=== PATIENT | female | born 1995 | race Caucasian/White ===

== ENCOUNTER → 2017-06-26 | Outpatient (CLI) | payer OTHER ==
[2017-06-26 13:17] LABS: BASO % 0.5 % (0.0-1.0); EOS # 0.1 10^3/uL (0.0-0.50); EOS % 1.5 % (0.0-3.0); IMMATURE GRANULOCYTE % 0.2 % (0-0); LYMPH # 1.7 10^3/uL (1.5-6.5); LYMPH % 27.1 % (24.0-44.0); MEAN CORPUSCULAR HEMOGLOBIN 29.2 pg (27.0-33.0); MEAN CORPUSCULAR HGB CONC 33.3 g/dl (32.0-36.5); MEAN CORPUSCULAR VOLUME 87.9 fl (80.0-96.0); MONO # 0.5 10^3/uL (0.0-0.8); MONO % 8.1 % (0.0-5.0); NEUTROPHILS # 3.9 10^3/uL (1.8-7.7); NEUTROPHILS % 62.6 % (36.0-66.0); PLATELET COUNT, AUTOMATED 252 10^3/uL (150-450); RED CELL DISTRIBUTION WIDTH 13.1 % (11.5-14.5); WHITE BLOOD COUNT 6.2 10^3/uL (4.0-10.0)
[2017-06-26 14:08] LABS: HBsAg Prenatal NEGATIVE (NEGATIVE)
== END ==
LOC: M SMT 10:38
PROVIDERS: ATTEND Advanced Practice Midwife
DX: O34.211 Maternal care for low transverse scar from previous cesarean delivery (principal); Z3A.10 10 weeks gestation of pregnancy

== ENCOUNTER → 2017-08-07 | Outpatient (CLI) | payer OTHER | LOC: M SMT 10:32 | DX: Z31.438 Encounter for other genetic testing of female for procreative management (principal) | CPT/HCPCS: 36415 ==

== ENCOUNTER → 2017-09-01 | Outpatient (CLI) | payer OTHER | LOC: M RAD 14:05 | DX: Z34.82 Encounter for supervision of other normal pregnancy, second trimester (principal) ==

== ENCOUNTER → 2017-09-26 | Outpatient (CLI) | payer OTHER | LOC: M RAD 17:14 | DX: Z34.82 Encounter for supervision of other normal pregnancy, second trimester (principal) ==

== ENCOUNTER → 2017-10-25 | Outpatient (CLI) | payer OTHER ==
[2017-10-25 08:46] LABS: GLUCOSE, FASTING 86 MG/DL (LESS THAN 95)
[2017-10-25 09:51] LABS: 1 HR GLUCOSE 137 MG/DL (LESS THAN 180)
[2017-10-25 10:46] LABS: 2 HR GLUCOSE 99 MG/DL (LESS THAN 155)
[2017-10-25 12:10] LABS: 3 HR GLUCOSE 118 MG/DL (LESS THAN 140)
== END ==
LOC: M LAB 07:57
DX: R73.02 Impaired glucose tolerance (oral) (principal)

== ENCOUNTER 2017-11-28 18:18 | Outpatient (CLI) | payer OTHER | END 2017-11-28 19:35 | disposition home or self-care (01) | LOC: M LDO 18:18 | DX: O36.8130 Decreased fetal movements, third trimester, not applicable or unspecified (principal); O47.03 False labor before 37 completed weeks of gestation, third trimester; Z3A.32 32 weeks gestation of pregnancy | CPT/HCPCS: 59025 ==

== ENCOUNTER → 2017-12-22 | Outpatient (REF) | payer OTHER | LOC: M LAB REF 17:01 | DX: Z34.83 Encounter for supervision of other normal pregnancy, third trimester (principal) ==

== ENCOUNTER 2017-12-28 19:00 | Outpatient (CLI) | payer OTHER | END 2017-12-28 21:55 | disposition home or self-care (01) | LOC: M LDO 19:00 | DX: O47.1 False labor at or after 37 completed weeks of gestation (principal); Z3A.37 37 weeks gestation of pregnancy | CPT/HCPCS: 59025 ==

== ENCOUNTER 2018-01-09 08:33 | Inpatient (IN) | payer OTHER ==
[2018-01-09] MEDS ORDERED: LR 1,000 ML IV (10:52)
[2018-01-09] MEDS ORDERED: OXYTOCIN INJ 10 UNITS/ML VIAL (J2590) As Ordered ×2 (10:58)
[2018-01-09] MEDS ORDERED: PHENYLEPHRINE INJ 10MG/ML VIAL (J2370) As Ordered (11:01)
[2018-01-09] MEDS ORDERED: MORPHINE PRES-FREE INJ 10 MG/10 ML VIAL (J2274) As Ordered (11:03)
[2018-01-09 11:06] LABS: HEMATOCRIT 36.1 % (36.0-47.0); HEMOGLOBIN 11.5 g/dl (12.0-15.5); MEAN CORPUSCULAR HEMOGLOBIN 25.9 pg (27.0-33.0); MEAN CORPUSCULAR HGB CONC 31.9 g/dl (32.0-36.5); MEAN CORPUSCULAR VOLUME 81.3 fl (80.0-96.0); PLATELET COUNT, AUTOMATED 203 10^3/uL (150-450); RED BLOOD COUNT 4.44 10^6/uL (4.00-5.40); RED CELL DISTRIBUTION WIDTH 14.8 % (11.5-14.5)
[2018-01-09] MEDS: LACTATED RINGER'S 1000 ML IV (11:50)
[2018-01-09] MEDS: BICITRA 30ML SOLN UDC PO (11:51)
[2018-01-09] MEDS ORDERED: AZITHROMYCIN INJ 500MG VIAL (J0456) As Ordered (11:57)
[2018-01-09] MEDS: AZITHROMYCIN INJ 500 MG, VIAL MATE ADAPTER 1 EACH in D5W 250 ML IV (12:00)
[2018-01-09] MEDS ORDERED: ONDANSETRON 4MG/2ML VIAL (J2405) IV ×3 (12:08→13:45)
[2018-01-09] MEDS ORDERED: NALBUPHINE HCL 10 MG/ML AMP (J2300) IV ×2 (12:08→13:45)
[2018-01-09] MEDS ORDERED: NALOXONE INJ 0.4 MG/1 ML VIAL (J2310) IV ×2 (12:08)
[2018-01-09] MEDS ORDERED: dexameTHASONE 4 MG/ML 1ML VIAL (J1100) As Ordered (12:30)
[2018-01-09] MEDS ORDERED: PERCOCET 5MG/325MG TAB PO (13:30)
[2018-01-09] MEDS ORDERED: PROMETHAZINE 25 MG TAB PO (13:30)
[2018-01-09] MEDS ORDERED: fentaNYL 100 MCG/2 ML INJECTION (J3010) IV (13:45)
[2018-01-09] MEDS: RHOGAM 300 MCG (1500 IU) INJ (J2790) IM (14:03)
[2018-01-09] MEDS: MEASLES,MUMPS,RUBELLA VACCINE INJ (MMR-II) (90707) SC (14:04)
[2018-01-09] MEDS ORDERED: KETOROLAC 30 MG/ML VIAL (J1885) As Ordered (14:32)
[2018-01-09] MEDS: KETOROLAC 30 MG/ML VIAL (J1885) IV ×2 (14:35→20:55)
[2018-01-09] MEDS: LR 1,000 ML IV ×2 (15:38→21:28)
[2018-01-09] MEDS: DOCUSATE SODIUM 100 MG CAP PO ×2 (16:34→20:55)
[2018-01-09] MEDS: PRENATAL VITAMINS CHEWABLE TABLET PO (16:35)
[2018-01-09] MEDS: OXYTOCIN DRIP 30 UNITS in APPROPRIATE DILUENT 1 EA IV (16:35)
[2018-01-09] MEDS: METOCLOPRAMIDE INJ 10MG/2ML VIAL (J2765) IV (20:54)
[2018-01-10] MEDS: KETOROLAC 30 MG/ML VIAL (J1885) IV ×2 (02:22→08:14)
[2018-01-10 07:32] LABS: MEAN CORPUSCULAR HEMOGLOBIN 25.8 pg (27.0-33.0); MEAN CORPUSCULAR HGB CONC 31.7 g/dl (32.0-36.5); MEAN CORPUSCULAR VOLUME 81.5 fl (80.0-96.0); PLATELET COUNT, AUTOMATED 205 10^3/uL (150-450); RED BLOOD COUNT 3.68 10^6/uL (4.00-5.40); RED CELL DISTRIBUTION WIDTH 14.5 % (11.5-14.5); WHITE BLOOD COUNT 13.6 10^3/uL (4.0-10.0)
[2018-01-10 07:33] LABS: HEMOGLOBIN 9.5 g/dl (12.0-15.5)
[2018-01-10] MEDS: DOCUSATE SODIUM 100 MG CAP PO ×2 (08:14→20:14)
[2018-01-10] MEDS: PRENATAL VITAMINS CHEWABLE TABLET PO (08:14)
[2018-01-10] MEDS: IBUPROFEN 800 MG TAB PO ×2 (16:15→23:43)
[2018-01-10] MEDS: PERCOCET 5MG/325MG TAB PO (16:16)
[2018-01-11] MEDS: DOCUSATE SODIUM 100 MG CAP PO (08:56)
[2018-01-11] MEDS: PRENATAL VITAMINS CHEWABLE TABLET PO (08:56)
[2018-01-11] MEDS: IBUPROFEN 800 MG TAB PO (08:57)
[2018-01-11] MEDS: PERCOCET 5MG/325MG TAB PO (08:59)
== END 2018-01-11 12:35 | disposition home or self-care (01) | DRG 766 ==
LOC: M LDO 08:33 → M LDI 10:31 → M OBS 15:01
PROVIDERS: Obstetrics & Gynecology
PROC: 10D00Z1 Extraction of Products of Conception, Low, Open Approach (ICD-10-PCS; principal; 2018-01-09 11:59)
DX: O34.211 Maternal care for low transverse scar from previous cesarean delivery (principal); Z37.0 Single live birth; Z3A.38 38 weeks gestation of pregnancy

== ENCOUNTER 2018-10-18 21:15 | Emergency (ER) | payer OTHER ==
[~2018-10-18] VITALS: Ht 154.9 cm; Wt 65.9 kg
[~2018-10-18 21:15] MED LIST: COLA100C5 PO; IBUP80TA PO; PERC5TAB12 PO; PREN27TA3 PO; PRENTAB9 PO
[2018-10-18] MEDS ORDERED: NS 1,000 ML IV ONE ×2 (21:30→22:30)
[2018-10-18] MEDS ORDERED: ONDANSETRON 4MG/2ML VIAL (J2405) IV ONE (21:45)
[2018-10-18 22:15] LABS: BASO % 0.1 % (0.0-1.0); EOS % 0.3 % (0.0-3.0); HEMATOCRIT 36.3 % (36.0-47.0); HEMOGLOBIN 12.2 g/dl (12.0-15.5); LYMPH % 7.1 % (24.0-44.0); MEAN CORPUSCULAR HGB CONC 33.6 g/dl (32.0-36.5); MEAN CORPUSCULAR VOLUME 83.4 fl (80.0-96.0); MONO % 7.3 % (0.0-5.0); NEUTROPHILS # 11.7 10^3/uL (1.8-7.7); NEUTROPHILS % 84.8 % (36.0-66.0); PLATELET COUNT, AUTOMATED 232 10^3/uL (150-450); RED BLOOD COUNT 4.35 10^6/uL (4.00-5.40); WHITE BLOOD COUNT 13.8 10^3/uL (4.0-10.0)
[2018-10-18 22:47] LABS: INFLUENZA A AMPLIFICATION POSITIVE (NEGATIVE); INFLUENZA B AMPLIFICATION NEGATIVE (NEGATIVE)
[2018-10-18 22:53] LABS: ALBUMIN 3.1 GM/DL (3.2-5.2); ALT/SGPT 12 U/L (12-78); BILIRUBIN,DIRECT 0.1 MG/DL (0.0-0.2); BILIRUBIN,TOTAL 0.3 MG/DL (0.2-1.0); BLOOD UREA NITROGEN 9 MG/DL (7-18); CALCIUM LEVEL 8.2 MG/DL (8.5-10.1); CARBON DIOXIDE LEVEL 20 MEQ/L (21-32); CHLORIDE LEVEL 103 MEQ/L (98-107); CREATININE FOR GFR 0.41 MG/DL (0.55-1.30); GLOMERULAR FILTRATION RATE > 60.0 (>60); GLUCOSE, FASTING 121 MG/DL (70-100); POTASSIUM SERUM 2.9 MEQ/L (3.5-5.1); SODIUM LEVEL 135 MEQ/L (136-145); TOTAL PROTEIN 6.7 GM/DL (6.4-8.2)
[2018-10-18] MEDS ORDERED: POTASSIUM CHLORIDE 10 MEQ SR TABLET PO ONE (23:00)
[2018-10-18] MEDS ORDERED: KCL 10MEQ/100ML SWI (KRUN) 10 MEQ in APPROPRIATE DILUENT 1 EA IV ONE (23:00)
[2018-10-18] MEDS ORDERED: OSELTAMIVIR PHOSPHATE 75 MG CAP (TAMIFLU) PO ONE (23:30)
[2018-10-18] MEDS ORDERED: OSEL75CA PO (23:47)
[2018-10-18] MEDS ORDERED: ONDA4TAB6 PO (23:47)
[2018-10-19 01:17] VITALS: BP 109/71
--- NOTE | 2018-10-19 21:48 | ECGEPIP ---
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
== END 2018-10-19 01:20 | disposition home or self-care (01) ==
LOC: M ED 21:15
DX: O99.89 Other specified diseases and conditions complicating pregnancy, childbirth and the puerperium (principal); J09.X2 Influenza due to identified novel influenza A virus with other respiratory manifestations; O99.612 Diseases of the digestive system complicating pregnancy, second trimester; K52.9 Noninfective gastroenteritis and colitis, unspecified; E86.0 Dehydration; R00.0 Tachycardia, unspecified; O99.112 Other diseases of the blood and blood-forming organs and certain disorders involving the immune mechanism complicating pregnancy, second trimester; E87.6 Hypokalemia; Z87.891 Personal history of nicotine dependence; Z20.828 Contact with and (suspected) exposure to other viral communicable diseases; Z3A.14 14 weeks gestation of pregnancy

== ENCOUNTER 2019-03-29 06:36 | Outpatient (CLI) | payer OTHER ==
[~2019-03-29] VITALS: Ht 154.9 cm; Wt 71.5 kg
[~2019-03-29 06:36] MED LIST changes: +ONDA4TAB6 PO; +OSEL75CA PO
[2019-03-29 06:59] VITALS: BP 108/65
== END 2019-03-29 09:14 | disposition home or self-care (01) ==
LOC: M LDO 06:36
PROVIDERS: ATTEND Obstetrics & Gynecology
DX: O36.8130 Decreased fetal movements, third trimester, not applicable or unspecified (principal); Z3A.37 37 weeks gestation of pregnancy
CPT/HCPCS: 59025; 76815; G0378; G0463

== ENCOUNTER 2019-04-04 11:15 | Inpatient (IN) | payer OTHER ==
[~2019-04-04] VITALS: Ht 154.9 cm; Wt 69.0 kg
[2019-04-04] MEDS ORDERED: LR 1,000 ML IV SCH ×3 (12:07→16:00)
[2019-04-04] MEDS ORDERED: LACTATED RINGER'S 1000 ML IV STA (12:07)
[2019-04-04] MEDS ORDERED: BICITRA 30ML SOLN UDC PO ONE (12:30)
[2019-04-04] MEDS ORDERED: LACTATED RINGER'S 1000 ML IV ONE (12:30)
[2019-04-04 12:33] LABS: HEMATOCRIT 33.8 % (36.0-47.0); HEMOGLOBIN 10.5 g/dl (12.0-15.5); MEAN CORPUSCULAR HEMOGLOBIN 24.8 pg (27.0-33.0); MEAN CORPUSCULAR HGB CONC 31.1 g/dl (32.0-36.5); MEAN CORPUSCULAR VOLUME 79.9 fl (80.0-96.0); PLATELET COUNT, AUTOMATED 260 10^3/uL (150-450); RED BLOOD COUNT 4.23 10^6/uL (4.00-5.40); WHITE BLOOD COUNT 12.1 10^3/uL (4.0-10.0)
[2019-04-04] MEDS ORDERED: BUPIVACAINE HCL 0.25% 10 ML VIAL SC ONE (12:45)
[2019-04-04] MEDS ORDERED: ACETAMINOPHEN 650 MG SUPP PR ONE (12:45)
[2019-04-04] MEDS ORDERED: ONDANSETRON 4MG/2ML VIAL (J2405) IV PRN ×2 (13:19→16:00)
[2019-04-04] MEDS ORDERED: NALOXONE INJ 0.4 MG/1 ML VIAL (J2310) IV PRN ×2 (13:19)
[2019-04-04] MEDS ORDERED: METOCLOPRAMIDE INJ 10MG/2ML VIAL (J2765) IV PRN (13:19)
[2019-04-04] MEDS ORDERED: diphenhydrAMINE INJ 50MG/ML VIAL (J1200) IV PRN (13:19)
[2019-04-04] MEDS ORDERED: NALBUPHINE HCL 10 MG/ML AMP (J2300) IV PRN (13:19)
[2019-04-04] MEDS ORDERED: PHENYLephrine HCL 500 MCG/5 ML (100MCG/ML) SYRINGE (J2370) As Ordered ONE (13:54)
[2019-04-04] MEDS ORDERED: MORPHINE PRES-FREE INJ 10 MG/10 ML VIAL (J2274) As Ordered ONE (13:54)
[2019-04-04] MEDS ORDERED: OXYTOCIN INJ 10 UNITS/ML VIAL (J2590) As Ordered ONE (13:54)
[2019-04-04] MEDS ORDERED: ONDANSETRON 4MG/2ML VIAL (J2405) As Ordered ONE (13:58)
--- NOTE | 2019-04-04 14:29 | HPE ---
DATE OF ADMISSION: 04/04/2019 HISTORY: 24-year-old, 6, para 2, abortio 3, last menstrual period (LMP) 07/03/2018, expected date of confinement (EDC) 04/18/2019, at 38 weeks of gestation who came in with active labor while she was in centering. She did not have a pelvic exam at that time. She came in with a non-reassuring heart strip, but she had some moderate contractions. She has had two previous sections. She has a large adnexal mass on her right ovary. Her risk factors is she had spinal fusion, she has had two previous sections, she has a right ovarian mass which is assumed to be benign. PAST HISTORY: In 2016, at 15 weeks, spontaneous . In 2017, at 37 weeks, section because of her spinal fusion. In 2017, at 7 weeks, spontaneous . In 2018, at 38 weeks, repeat section. In 2018, a documented 4 weeks gestation with spontaneous . LABS: A positive. HIV negative. Hepatitis negative. RPR negative. Rubella immune. Varicella immune. Urine negative. Gonorrhea and chlamydia are negative. Pap smear was not performed. 1-hour glucose was 138. GBS is negative. Presently, we are trying to hydrate her and attempt to get a category one strip. Presently, it is not a category one, it is minimal baseline variability at the best. Otherwise, she is normocephalic, atraumatic. Neck full range of motion. Pupils equal and reactive to light. Chest is clear bilaterally at bases. No wheezes or rhonchi. No costovertebral angle (CVA) tenderness. Abdomen soft. Uterus is appropriate size. Four quadrant bowel sounds are noted. section scar is noted. She has no rashes, lesions or pruritus. No arthralgia, myalgia or complaint of joint pain. No complaint of cough, wheeze, shortness breath or dyspnea on exertion. No bleeding. Neuro complete. No incontinency or frequency. No nausea, vomiting, diarrhea, or constipation. No diabetic issues. PAST DISCHARGE RN HISTORY: Unremarkable. She has never had an abnormal Pap smear to her knowledge. No sexually transmitted diseases (STDs). PAST SURGICAL HISTORY: Two sections and spinal fusion. SOCIAL HISTORY: She does not smoke, drink or abuse drugs. She is . Good support. No domestic violence. MEDICATIONS: She is presently with vitamins. We discussed and reviewed section. She has previously signed for section for a week out from now. Will have to repeat the signature aspect of the consent form. We talked about infection, hemorrhage, perforation, , reoperation, remote possibility of blood transfusion, remote possibility of , hysterectomy because of acute blood loss, remote possibility laceration, or baby entrance into the intensive care unit (NICU). We discussed with her the fact that if the adnexal mass is in the way of getting to the baby that we will drain the cyst in order to be able to visualize the section scar for repeat section. The patient also requested bilateral tubal ligation. We discussed risks and benefits of tubal ligation and the fact that there is a failure rate of less than 1%. She could end up with intrauterine and ectopic , rupture of tube, post tubal ligation syndrome. The patient expressed understanding of the above and signed the consent form. We are going to consult the anesthesiologist regarding her spinal in view of the fact that she has had a spinal fusion. Also neonatology has been notified regarding that she is 38 weeks in active labor with a non-reassuring heart strip. We spent 40 minutes in discussion face to face. All questions were answered.
[2019-04-04 14:32] LABS: CORD GAS ABE A -2.9; CORD GAS ABE V -2.9; CORD GAS HCO3 A 24.6 MEQ/L; CORD GAS HCO3 V 22.9 MEQ/L; CORD GAS O2 SAT A 52.4 %; CORD GAS O2 SAT V 71.3 %; CORD GAS PCO2 A 52.6 mmHg; CORD GAS PCO2 V 43.2 mmHg; CORD GAS PH A 7.287 UNITS; CORD GAS PH V 7.342 UNITS; CORD GAS PO2 A 22.7 mmHg; CORD GAS PO2 V 29.2 mmHg; CORD GAS SBC A 20.9 MEQ/L; CORD GAS SBC V 21.4 MEQ/L; CORD GAS TCO2 A 26.2 MEQ/L; CORD GAS TCO2 V 24.2 MEQ/L
[2019-04-04] MEDS ORDERED: OXYTOCIN 30 UNITS IN 0.9% NaCl 500ML IV BAG (J2590) As Ordered ONE (14:56)
[2019-04-04] MEDS ORDERED: PERCOCET 5MG/325MG TAB PO PRN (16:00)
[2019-04-04] MEDS: LR 1,000 ML IV SCH (16:16)
[2019-04-04] MEDS ORDERED: fentaNYL 100 MCG/2 ML INJECTION (J3010) As Ordered ONE (16:27)
[2019-04-04] MEDS ORDERED: OXYTOCIN INJ 10 UNITS/ML VIAL (J2590) IV ONE ×2 (16:30)
[2019-04-04] MEDS ORDERED: MEASLES,MUMPS,RUBELLA VACCINE INJ (MMR-II) (90707) SC SCH (16:30)
[2019-04-04] MEDS ORDERED: ACETAMINOPHEN TAB 650MG DOSE (2X325MG) PO PRN (16:30)
[2019-04-04] MEDS ORDERED: METHYLERGONOVINE MALEATE 0.2 MG TAB PO PRN (16:30)
[2019-04-04] MEDS ORDERED: ACETAMINOPHEN 500 MG TAB PO PRN (16:30)
[2019-04-04] MEDS ORDERED: RHOGAM 300 MCG (1500 IU) INJ (J2790) IM SCH (16:30)
[2019-04-04] MEDS ORDERED: ANUSOL HC CREAM 30GM TOP PRN (16:30)
[2019-04-04] MEDS: OXYTOCIN DRIP 30 UNITS in APPROPRIATE DILUENT 1 EA IV SCH ×2 (16:31→20:16)
[2019-04-04] MEDS: fentaNYL 100 MCG/2 ML INJECTION (J3010) IV PRN ×3 (16:43→17:01)
[2019-04-04] MEDS ORDERED: PERCOCET 5MG/325MG TAB As Ordered ONE (17:19)
[2019-04-04 18:30] VITALS: BP 103/63
[2019-04-04] MEDS: KETOROLAC 30 MG/ML VIAL (J1885) IV SCH ×2 (18:30→23:42)
[2019-04-04 18:37] VITALS: BP 111/72
[2019-04-04 19:30] VITALS: BP 104/53
[2019-04-04 20:38] VITALS: BP 104/55
[2019-04-04] MEDS: PERCOCET 5MG/325MG TAB PO PRN (21:56)
[2019-04-04 22:00] VITALS: BP 96/55
[2019-04-05 02:03] VITALS: BP 100/54
[2019-04-05] MEDS: KETOROLAC 30 MG/ML VIAL (J1885) IV SCH ×2 (05:15→11:53)
[2019-04-05] MEDS: LR 1,000 ML IV SCH (05:15)
[2019-04-05 05:59] VITALS: BP 99/56
--- NOTE | 2019-04-05 07:07 | IPN ---
DATE: 04/04/2019 day 1. This lady is a 7, para 3 now who was admitted in active labor with a nonreassuring heart tones, was electively booked for a repeat section, bilateral tubal ligation. She had a repeat section, bilateral tubal ligation. She delivered a live male 6 pounds 13 ounces, 3100 grams, scores of nine and nine at 1 and 5 minutes respectfully. Arterial pH 7.28, base excess -2.9, venous pH 7.34, base excess -2.9. She did have a large diastasis recti which was repaired and had a large ovarian adnexal mass, which we drained. It appeared to be mucinous type material and then we did an ovarian cystectomy on the right side. On her first day we discussed phlebitis, cystitis, mastitis, endometritis and cellulitis, diet, exercise, pain management, perineal, breast and wound care. Her vital signs this morning, blood pressure 99/56, respirations are 18, pulse 91, temperature 97.4. She is presently breast-feeding. The rest of the examination is unremarkable. Normocephalic, atraumatic. Neck full range of motion. Pupils equal and reactive to light. Distal pulses symmetric. No evidence of deep vein thrombosis (DVT), pulmonary embolism (PE), or superficial phlebitis. Chest is clear bilaterally to the bases. No wheezes or rhonchi. No CVA tenderness. Abdomen is soft, four quadrant bowel sounds are noted. She has not voided since 0200 hours so we bladder scanned her and she had about 245 mL of urine in the bladder. She did not have any urge to void. We will get her up and attempt to have her void, otherwise straight cath will have to be entertained. She has no rashes, lesions or pruritus. No arthralgia, myalgia. No complaint joint pain. No complaint cough, wheeze, shortness breath or dyspnea on exertion. No nausea, vomiting, diarrhea or constipation. In summary, we have day 1 patient with a repeat section and bilateral tubal ligation by Monet wilks. Our plan of management is to allow her to go home tomorrow pending her voiding patterns and medications will be dispensed at discharge as well as a 2-week incision check and 6-week check at [facility]. Her questions were all answered. 20-minute discussion with the patient.
--- NOTE | 2019-04-05 08:02 | RO ---
DATE OF PROCEDURE: 04/04/2016 PREOPERATIVE DIAGNOSES: Repeat section. Satisfied parity. Bilateral tubal ligation by Filshie clip. Aspiration of right ovarian mass and resection of right ovarian cyst. Repair of diastasis recti. Nonreassuring heart tones. POSTOPERATIVE DIAGNOSES: Repeat section. Satisfied parity. Bilateral tubal ligation by Filshie clip. Aspiration of right ovarian mass and resection of right ovarian cyst. Repair of diastasis recti. Nonreassuring heart tones. OPERATION PERFORMED: Repeat section. Bilateral tubal ligation by Filshie clip. Right ovarian cystectomy. Aspiration of right ovarian cyst. Repair of diastasis recti. SURGEON: Marv Will MD ORCHID WORKER: Kadie Hedrick CNM ANESTHESIA: Spinal plus local anesthetic for intraperitoneal procedures. ESTIMATED BLOOD LOSS: 400 mL. After adequate time out, prepped and draped in the supine position, Galindo catheter in the bladder draining clear urine, appropriate antibiotic therapy, sequentials in place, acetaminophen suppository 1300 mg per rectum, a low transverse incision was made through the previous two incisions passing through abdominal layers. We noticed that when we got in there was no fascial closure and we were right into the abdomen. The bladder itself was well down anteriorly, very thin lower uterine segment, we basically did a low transverse incision into that thin lower uterine segment clear liqua, delivered a live male weighing 3100 grams or 6 pounds, 13 ounces with scores of nine and nine at 1 and 5 minutes respectively. Placenta was manually removed, three-vessel cord, membranes and tissues intact. Arterial pH 7.28, base excess -2.9, venous pH 7.32, base excess -2.9. The intrauterine contents were swept out. No evidence of membranes or tissue. The uterus contracted well down under Pitocin. Two layer closure was formed imbricating the second layer and then reperitonealization was performed. With instrument and pad count correct, we asked the patient if she still wished to have a tubal ligation and she responded in the affirmative. The left ovary and tube appeared to be normal. The left tube was visualized to the fimbriated end. Filshie clip was applied to mid section and a stay suture was anterior to the Filshie clip. On the right side we initially had to move the uterus over and we found a large adnexal mass, which was posterior to the uterus and actually up under the liver. We removed this mass, exteriorized it, walled it off so that if there was any extraneous fluid it would not leak back into the abdomen. It was approximately 8 x 8 cm, large vascularity at the base. We aspirated the cyst for mucusy type material, approximately 300 mL, which was sent off under separate cover to cytology for evaluation. Once that was done we then opened the cyst. We then followed it all the way down to what appeared to be remnant of ovarian tissue and with curved Mercedes's we clamped it off, cut off the entire cyst with its internal lining intact. We then over sewed the cut edges with #2-[address] We secure hemostasis. We irrigated the exteriorized ovary. No evidence of active bleeding. It was then replaced in the abdomen. The tube itself was visualized to the fimbriated end and Filshie clip was applied in the mid section and a stay suture proximal to the Filshie clip. With instrument and pad counts correct, we reviewed the incisional site. It was clean, dry. We then closed the peritoneum, we were able to find some peritoneum to close. We then developed the fascia which was there but had to be dissected off. Once that was done we went ahead and repaired the diastasis recti with #2-0 Vicryl and [id number]. We reapproximated that area. Then we used a #2-0 Vicryl for subcuticular to close the space and then the subcuticular stitch to the skin. Marcaine 0.25% 10 mL to the skin site, spray and Telfa and the patient was sent to recovery in good condition.
[2019-04-05 08:22] LABS: HEMATOCRIT 31.7 % (36.0-47.0); HEMOGLOBIN 9.7 g/dl (12.0-15.5); MEAN CORPUSCULAR HEMOGLOBIN 25.3 pg (27.0-33.0); MEAN CORPUSCULAR HGB CONC 30.6 g/dl (32.0-36.5); MEAN CORPUSCULAR VOLUME 82.8 fl (80.0-96.0); PLATELET COUNT, AUTOMATED 205 10^3/uL (150-450); RED BLOOD COUNT 3.83 10^6/uL (4.00-5.40); WHITE BLOOD COUNT 11.9 10^3/uL (4.0-10.0)
[2019-04-05] MEDS: PRENATAL VITAMINS CHEWABLE TABLET PO SCH (08:28)
[2019-04-05] MEDS ORDERED: INFLUENZA QUADRIVALENT PF VACCINE 0.5ML SYRINGE (90686) IM ONE (09:00)
[2019-04-05 10:00] VITALS: BP 109/57
[2019-04-05 14:00] VITALS: BP 104/78
[2019-04-05] MEDS ORDERED: SODIUM CHLORIDE NASAL 0.65% SPRAY BTL (OCEAN) PRN (16:15)
[2019-04-05 18:00] VITALS: BP 109/63
[2019-04-05] MEDS ORDERED: IBUPROFEN 800 MG TAB PO SCH (18:30)
[2019-04-05] MEDS: PERCOCET 5MG/325MG TAB PO PRN (18:37)
[2019-04-05] MEDS: guaiFENesin ER 600 MG TAB PO SCH (18:37)
[2019-04-05] MEDS: IBUPROFEN 800 MG TAB PO PRN (18:38)
[2019-04-05] MEDS ORDERED: IBUPROFEN 600 MG TAB PO PRN (19:00)
[2019-04-05 22:00] VITALS: BP 105/60
[2019-04-06] MEDS: PERCOCET 5MG/325MG TAB PO PRN ×2 (00:16→08:37)
[2019-04-06 02:00] VITALS: BP 113/73
[2019-04-06] MEDS: IBUPROFEN 800 MG TAB PO PRN (05:24)
[2019-04-06 05:52] VITALS: BP 108/72
[2019-04-06] MEDS: PRENATAL VITAMINS CHEWABLE TABLET PO SCH (08:37)
[2019-04-06] MEDS: guaiFENesin ER 600 MG TAB PO SCH (08:38)
[2019-04-06] MEDS ORDERED: IBUP80TA PO (09:06)
[2019-04-06] MEDS ORDERED: PERCOCET PO (09:06)
--- NOTE | 2019-04-06 09:26 | OBDS ---
[facility] Obstetrical Discharge Sum. Obstetrical Discharge Summary Date: Apr 06, 2019 : 6 Term: 2 Pre-term: 0 Abortions: 3 Livin VDRL: Non-Reactive Rh: Positive Rubella: Immune Sex: Male Infant Weight: grams (3100) Anesthesia: Regional Anesthesia A/P, Post Course List any complications Admission diagnosis: Nonreassuring Heart, History of C/S Discharge diagnosis: Nonreassuring Heart, History of C/S, Single Live , Satisfied Parity Condition at Discharge: good Discharge Instructions: [Home] Activity: No Heavy lifting (<10lbs), Pelvic Rest for 6 weeks Diet: Regular as tolerated Medications: Percocet, Ibuprofen, Colace Follow-up: 2 weeks for incision check, 6 weeks for visit Hospital Course: Maggie is a 24-year-old 3 now Para 3033 status post repeat low transverse section, bilateral tubal ligation and ovarian cystectomy at 38+0 weeks' at approximately on [id number] of a Male 6 pounds 13 ounces (3100 grams). She has remained stable through her hospital stay. She has met all criteria for discharge on day 2. VITAL SIGNS: Normotensive, non-tachycardic, afebrile. Alert and oriented times three. Abdomen: Fundus firm at U-1. Soft, NTTP. Incision: C/D/I Minimal lochia. PLAN: 1. Continue Routine obstetric care. No heavy lifting and pelvic rest. 2. Encourage breast feeding and ambulation. 3. s/p BTL. 4. Percocet and Motrin for pain. Colace for bowel regime. 5. VTE: early ambulation. 6. Strict return precautions discussed. 7. Encouraged hydration 8. Dispo: home on day 2. DO DAVID White CRYSTAL B. DO Apr 06, 2019 09:26
== END 2019-04-06 14:52 | disposition home or self-care (01) | DRG 785 ==
LOC: M LDO 11:15 → M LDI 12:28 → M OBS 17:58
PROVIDERS: ADMIT Registered Nurse Maternal Newborn; ATTEND Registered Nurse Maternal Newborn
PROC: 0UL70DZ Occlusion of Bilateral Fallopian Tubes with Intraluminal Device, Open Approach (ICD-10-PCS; 2019-04-04)
PROC: 0U900ZZ Drainage of Right Ovary, Open Approach (ICD-10-PCS; 2019-04-04)
PROC: 10D00Z1 Extraction of Products of Conception, Low, Open Approach (ICD-10-PCS; principal; 2019-04-04 13:20)
DX: O76 Abnormality in fetal heart rate and rhythm complicating labor and delivery (principal); Z37.0 Single live birth; Z3A.38 38 weeks gestation of pregnancy; O34.211 Maternal care for low transverse scar from previous cesarean delivery; Z30.2 Encounter for sterilization; N83.201 Unspecified ovarian cyst, right side; O34.83 Maternal care for other abnormalities of pelvic organs, third trimester; O71.89 Other specified obstetric trauma